=== PATIENT | male | born 1945 | race Caucasian/White ===

== ENCOUNTER 2023-05-24 11:10 | Outpatient (CLI) | payer MEDICARE, BC ==
[2023-05-24] MEDS ORDERED: Iopamidol 370 76% 100 ML VIAL ONE (13:59)
== END 2023-05-24 11:11 | disposition home or self-care (01) ==
LOC: BICCT 11:10
PROVIDERS: ATTEND Internal Medicine Hematology & Oncology
DX: R16.1 Splenomegaly, not elsewhere classified (principal); D51.8 Other vitamin B12 deficiency anemias; K57.30 Diverticulosis of large intestine without perforation or abscess without bleeding; K76.9 Liver disease, unspecified; Z90.49 Acquired absence of other specified parts of digestive tract
CPT/HCPCS: 74177; Q9967

== ENCOUNTER 2023-09-05 11:07 | Outpatient (CLI) | payer MEDICARE, BC ==
[~2023-09-05 11:07] MED LIST: Iopamidol 370 76% 100 ML VIAL ONE
== END 2023-09-05 11:08 | disposition home or self-care (01) ==
LOC: BICCT 11:07
PROVIDERS: ATTEND Internal Medicine Hematology & Oncology
DX: R93.422 Abnormal radiologic findings on diagnostic imaging of left kidney (principal); N28.89 Other specified disorders of kidney and ureter
CPT/HCPCS: 74178; 82565; Q9967